=== PATIENT | female | born 1950 | race Caucasian/White ===

== ENCOUNTER 2020-05-15 22:22 | Emergency (ER) | payer MEDICARE ==
[~2020-05-15] VITALS: Ht 162.6 cm; Wt 54.5 kg
[2020-05-15 22:27] VITALS: Ht 162.6 cm; Wt 54.5 kg
[2020-05-15] MEDS ORDERED: OMEPRAZOLE40 MG PO (22:33)
[2020-05-15] MEDS ORDERED: BENICAR40 MG PO (22:33)
[2020-05-15] MEDS ORDERED: MOBIC7.5 MG PO (22:34)
[2020-05-15] MEDS ORDERED: MULTI-DAY VITAM1 TAB PO (22:34)
[2020-05-15] MEDS ORDERED: OXYCONTIN10 MG PO (23:41)
[2020-05-16 00:18] VITALS: BP 137/65
== END 2020-05-16 00:18 | disposition home or self-care (01) ==
LOC: D.ER 22:22
DX: S62.101A Fracture of unspecified carpal bone, right wrist, initial encounter for closed fracture (principal); W19.XXXA Unspecified fall, initial encounter; Y93.9 Activity, unspecified; Y92.9 Unspecified place or not applicable; I10 Essential (primary) hypertension; G62.9 Polyneuropathy, unspecified; J45.909 Unspecified asthma, uncomplicated